=== PATIENT | female | born 1970 | race African-American/Black ===

== ENCOUNTER 2017-03-11 14:07 | Emergency (ER) | payer SELFPAY ==
[2017-03-11] MEDS ORDERED: Morphine 10 MG/ML VIAL ONE (14:37)
== END 2017-03-11 15:03 | disposition home or self-care (01) ==
LOC: ERS 14:07
DX: M54.16 Radiculopathy, lumbar region (principal); I10 Essential (primary) hypertension; F31.9 Bipolar disorder, unspecified; F17.210 Nicotine dependence, cigarettes, uncomplicated; Z79.899 Other long term (current) drug therapy
CPT/HCPCS: 96372; J2270

== ENCOUNTER 2017-07-15 19:15 | Observation (INO) | payer MEDICAID, SELFPAY ==
[2017-07-15 19:55] LABS: #Basophils 0.1 thou/uL (0.0-0.2); #Lymphocytes 4.2 thou/uL (1.20-3.40); #Monocytes 0.9 thou/uL (0.11-0.59); #Neutrophils 5.3 thou/uL (1.40-6.50); %Basophils 1.3 % (0.0-1.0); %Eosinophils 0.2 % (0.0-10.0); %Lymphocytes 39.4 % (21.0-51.0); %Monocytes 8.9 % (0.0-10.0); %Neutrophils 50.2 % (42.0-75.0); Hemoglobin 13.6 g/dL (12.0-16.0); Mean Corpuscular HGB CONC 33.3 g/dL (32.0-36.0); Mean Corpuscular Hemoglobin 28.5 pg (27.0-31.0); Mean Corpuscular Volume 85.8 fl (81.0-99.0); Mean Platelet Volume 6.7 fL (7.4-10.4); Platelet Count 437 thou/uL (130-400); RBC Distribution Width 14.7 % (11.5-14.5); Red Blood Cell (RBC) Count 4.76 mill/uL (4.20-5.40); White Blood Cell (WBC) Count 10.6 thou/uL (4.8-10.8)
--- NOTE | 2017-07-15 20:19 | RAD ---
CHEST ONE VIEW 07/15/17 HISTORY: Hypertension. COMPARISON: 12/05/11 FINDINGS: The cardiac silhouette is magnified by projection. Pulmonary vasculature is unremarkable. Mediastinum is midline with single vertical metallic mohit of the spine. No lobar consolidation or evidence of pne umothorax. IMPRESSION: No active cardiopulmonary abnormalities are demonstrated. POS: [facility]
[2017-07-15 20:20] LABS: ALT (SGPT) 11 U/L (8-55); AST (SGOT) 16 U/L (5-34); Albumin 4.1 g/dL (3.5-5.0); Alkaline Phosphatase 80 U/L (40-150); Anion Gap 11 mmol/L (10-20); BUN (Urea Nitrogen) 7 mg/dL (7.0-18.7); Bilirubin, Total 0.3 mg/dL (0.2-1.2); CK (CPK) 110 U/L (29-168); Calc. Creatinine Clearance 0 mL/min (70-130); Calcium 9.7 mg/dL (7.8-10.44); Carbon Dioxide 26 mmol/L (22-29); Chloride 104 mmol/L (98-107); Estimated GFR-MDRD 79; Glucose 88 mg/dL (70-105); Lipase 26 U/L (8-78); Potassium 3.9 mmol/L (3.5-5.1); Protein, Total 7.1 g/dL (6.0-8.3); Sodium 137 mmol/L (136-145)
[2017-07-15 20:25] LABS: Troponin I Less than 0.010 ng/mL (< 0.028)
[2017-07-15] MEDS ORDERED: hydrALAZINE 20 MG/ML VIAL ONE ×2 (20:34→21:12)
[2017-07-15] MEDS ORDERED: Furosemide 40 MG/4 ML VIAL ONE (21:12)
[2017-07-15] MEDS ORDERED: Ondansetron HCl/PF 4 MG/2 ML Vial IVP PRN (23:46)
[2017-07-15] MEDS ORDERED: Ondansetron ODT 4 MG TAB SL PRN (23:46)
[2017-07-15 23:48] LABS: Troponin I Less than 0.010 ng/mL (< 0.028)
[2017-07-15 23:56] VITALS: BMI 37.1
[2017-07-16] MEDS ORDERED: Zolpidem Tartrate 5 MG TAB PO PRN (01:04)
[2017-07-16] MEDS ORDERED: traMADol HCl 50 MG TAB PO PRN (01:12)
--- NOTE | 2017-07-16 01:21 | PDOC.FPRHP ---
- History of Present Illness Chief Complaint: High blood pressure History of Present Illness: 46 yo F with hx of HTN here with complaint of high blood pressure measured 190s/ 110s at home. Pt states that her blood pressure normally runs in the 150-160 systolic range. She complains of associated symptoms of headache and dizziness especially when she stands. She says that she has not missed any meds recently. She denies symptoms such as chest pain or n/v. Pt also complains lower extremity edema. She states that she often has LE edema , however it has acutely worsened over the past few days. As of yesterday, both legs were swollen with the left being more prominent than the right. Today she says the right is worse than the left. She denies associated leg pain. She admits to SOB that started yesterday without associated cough, fever, chills. ED Course: In the ED she had a max systolic pressure of 204. She was treated with 10mg of hydralazine x2 and her blood pressure was brought down to the 170-190 range. - Allergies/Adverse Reactions Allergies Allergy/AdvReac Type Severity Reaction Status Date / Time Sulfa (Sulfonamide Allergy Verified 07/15/17 23:53 Antibiotics) - Home Medications Medication Instructions Recorded Confirmed Type DULoxetine [Cymbalta] 30 mg PO QPM 07/16/17 07/16/17 History DULoxetine [Cymbalta] 60 mg PO QAM 07/16/17 07/16/17 History Gabapentin [Neurontin] 100 mg PO TID 07/16/17 07/16/17 History Lamotrigine [lamoTRIgine] 125 mg PO BID 07/16/17 07/16/17 History Lisinopril/Hydrochlorothiazide 2 tablet PO DAILY 07/16/17 07/16/17 History [Lisinopril-Hctz 20-12.5 mg Tab] OLANZapine [Olanzapine] 10 mg PO HS 07/16/17 07/16/17 History Zolpidem Tartrate [Ambien] 10 mg PO HS PRN 07/16/17 07/16/17 History traMADol HCl [Tramadol HCl] 50 mg PO Q6HR PRN 07/16/17 07/16/17 History - History PMHx: BPD HTN PSHx: Scoliosis related back surgery FHx: CHF Social: 5 pk year smoking hx - Review of Systems General: denies: fever/chills, weight/appetite/sleep changes Eyes: reports: vision changes (Blurred vision). denies: eye pain ENT: reports: nasal congestion, rhinorrhea Respiratory: reports: cough, congestion. denies: shortness of breath Cardiovascular: reports: edema (B/l LE). denies: chest pain, palpitation Gastrointestinal: denies: nausea, vomiting Genitourinary: denies: incontinence, polyuria Skin: denies: rashes Musculoskeletal: denies: pain, tenderness Neurological: denies: numbness, syncope Psychological: reports: anxiety, depression - Vital signs BP: 186/83 HR: 75 RR: 18 Tmax: 99.4 Pox: 97% on RA Wt: 104 kg - Physical Exam Constitutional: NAD, awake, alert and oriented HEENT: normocephalic and atraumatic, PERRLA, EOMI, MMM Neck: supple, FROM Chest: no-tender to palpation Heart: RRR, normal S1/S2, no murmurs/rubs/gallops, other (LE edema to knee right worse than left.) Lungs: CTAB, good air movement Abdomen: soft, non-tender, bowel sounds present Musculoskeletal: normal structure, normal tone Neurological: no focal deficit, CN II-XII intact Skin: no rash/lesions, good turgor Heme/Lymphatic: no unusual bruising or bleeding Psychiatric: other (Appears anxious) FMR H&P: Results - Labs Result Diagrams: 07/15/17 19:51 07/15/17 19:51 Lab results: WBC 10.6 thou/uL (4.8-10.8) 07/15/17 19:51 Hgb 13.6 g/dL (12.0-16.0) 07/15/17 19:51 Hct 40.8 % (36.0-47.0) 07/15/17 19:51 MCV 85.8 fl (81.0-99.0) 07/15/17 19:51 Plt Count 437 thou/uL (130-400) H 07/15/17 19:51 Neutrophils % 50.2 % (42.0-75.0) 07/15/17 19:51 Sodium 137 mmol/L (136-145) 07/15/17 19:51 Potassium 3.9 mmol/L (3.5-5.1) 07/15/17 19:51 Chloride 104 mmol/L (98-107) 07/15/17 19:51 Carbon Dioxide 26 mmol/L (22-29) 07/15/17 19:51 BUN 7 mg/dL (7.0-18.7) 07/15/17 19:51 Creatinine 0.92 mg/dL (0.6-1.1) 07/15/17 19:51 Glucose 88 mg/dL (70-105) 07/15/17 19:51 Calcium 9.7 mg/dL (7.8-10.44) 07/15/17 19:51 Total Bilirubin 0.3 mg/dL (0.2-1.2) 07/15/17 19:51 AST 16 U/L (5-34) 07/15/17 19:51 ALT 11 U/L (8-55) 07/15/17 19:51 Alkaline Phosphatase 80 U/L (40-150) 07/15/17 19:51 Creatine Kinase 110 U/L (29-168) 07/15/17 19:51 CK-MB (CK-2) 1.0 ng/mL (0-6.6) 07/15/17 19:51 B-Natriuretic Peptide 69.7 pg/mL (0-100) 07/15/17 19:51 Serum Total Protein 7.1 g/dL (6.0-8.3) 07/15/17 19:51 Albumin 4.1 g/dL (3.5-5.0) 07/15/17 19:51 Lipase 26 U/L (8-78) 07/15/17 19:51 - Radiology Interpretation Chest x-ray Status: report reviewed by me (Normal xray) FMR H&P: A/P - Problem List (1) Hypertensive urgency Current Visit: Yes Status: Acute Priority: High Code(s): I16.0 - HYPERTENSIVE URGENCY (2) Lower extremity edema Current Visit: Yes Status: Acute Priority: High Code(s): R60.0 - LOCALIZED EDEMA (3) HTN (hypertension) Current Visit: Yes Status: Chronic Priority: High Code(s): I10 - ESSENTIAL (PRIMARY) HYPERTENSION Qualifiers: Hypertension type: unspecified Qualified Code(s): I10 - Essential (primary ) hypertension (4) Bipolar disorder Current Visit: Yes Status: Acute Priority: Low Code(s): F31.9 - BIPOLAR DISORDER, UNSPECIFIED - Plan Hypertensive urgency - Restart home meds and add coreg - hydralazine prn for pressure over 180/110 - admit to tele obs LE edema - pt has chronic edema, however in the setting of SOB will r/o PE - D-Dimer - LE doppler HTN - home meds and coreg as above Bipolar disorder - restart home meds Chronic back pain - restart tramadol and gabapentin, home meds DVT prophylaxis - Lovenox - SCD Disposition/LOS: Pt is stable. Will rule out DVT and cardiogenic cause of edema. Likely DC tomorrow FMR H&P: Upper Level - Pertinent history Patient is a 46yo AAF with PMHx of HTN, chronic low back pain and bipolar d/o who presents to ED due to elevated BP. Pt states that she knew her BP was high today because she just felt it. Endorses light headedness and floaters in her vision. Took her BP at that time and was 190/112 and thus presented to ED. Also reports BL LE swelling for the past few days. States LLE swelling has resolved but continued to have RLE swelling. Says her legs do swell occasionally and will resolved after a few days. Currently on Lisinopril/HCTZ BID and compliant with medication. States her BP normally runs in 150-160s. Previously on amlodipine but caused LE swelling. Followed by PCP in [place]. - Pertinent findings Gen: NAD HEENT: NEO, PONCHOM CV: S1 S2, RRR Lungs: CTAB Abd: nt/nd/bs+ Ext: RT. LE edema, (-) Homans, no calf tenderness - Plan Date/Time: 07/16/17 0114 IMis, have evaluated this patient and agree with findings/ plan as outlined by purchasing internship resident. Pertinent changes/additions are listed here. 1. Hypertensive urgency: Patient with uncontrolled HTN and currently on Lisinopril/HCTZ BID. Compliant with medication and reports BPs normally run in 150-160s. Has been on amlodipine before but caused significant LE edema. Will add coreg. 2. RLE swelling: patient with few day hx of BL LE swelling with resolution of LLE but persistent RLE. Given lasix in ED. BNP negative. Wells score of 2 for DVT. PERC of 1. Obtain BL LE doppler and d-dimer. Family hx of CHF and family concerned so obtain ECHO as well. 3. Bipolar DO: cont home olanzapine and duloxetine. 4. Chronic back pain: cont home tramadol and gabapentin. 5. Diet: HH 6. PPx: lovenox 7. Code Status: Full Attending Addendum - Attending Addendum Date/Time: 07/16/17 0236 I personally evaluated the patient and discussed the management with Dr. Perez and Yolanda. I agree with and repeated the History, Examination, Assessment and Plan documented above with any addition or exceptions noted below. See my event note.
[2017-07-16] MEDS: Zolpidem Tartrate 5 MG TAB PO PRN ×2 (01:30→20:56)
[2017-07-16] MEDS ORDERED: OLANZapine 5 MG TAB PO SCH (01:30)
--- NOTE | 2017-07-16 01:31 | PDOC.EVN ---
Event Note - Event Note Event Note: Attending note Pt seen on 07/15. 46 y/o female with PMH HTN with leg swelling, shortness of breath for several days. No CP/headache. No orthopnea or PND. Does snore at night quite loudly. NAD, resting comfortably RRR s M, BLE pitting edema, R significantly greater than left CTAB s w/r/r BS+, NTTP A/P: Hypertensive urgency -repeat dose home med and add coreg (adverse side effects from CCB in the past) -repeat dose lasix -TTE Leg swelling -r/o DVT with doppler/ddimer Check A1c, lipid panel DVT ppx with lovenox GI ppx with diet Discussed in detail with residents.
[2017-07-16] MEDS ORDERED: hydrALAZINE 20 MG/ML VIAL SLOW IVP SCH ×2 (01:45→04:15)
[2017-07-16 02:25] LABS: Troponin I Less than 0.010 ng/mL (< 0.028)
[2017-07-16] MEDS ORDERED: Ondansetron HCl/PF 4 MG/2 ML Vial IVP SCH (05:00)
[2017-07-16 06:44] LABS: Hemoglobin A1c 5.4 % (4.0-6.0)
[2017-07-16 06:47] LABS: Anion Gap 14 mmol/L (10-20); BUN (Urea Nitrogen) 7 mg/dL (7.0-18.7); Calc. Creatinine Clearance 121 mL/min (70-130); Calcium 9.9 mg/dL (7.8-10.44); Carbon Dioxide 25 mmol/L (22-29); Cardiac Risk 3.6 (Less than 4.5); Chloride 103 mmol/L (98-107); Cholesterol 157 mg/dl (< 200 Desired); Estimated GFR-MDRD 80; Glucose 94 mg/dL (70-105); HDL Cholesterol 44 mg/dL (>60 Neg Risk); LDL Cholesterol, Calculated 102 mg/dL; Potassium 3.4 mmol/L (3.5-5.1); Sodium 139 mmol/L (136-145); Triglycerides 54 mg/dL (Less than 150)
[2017-07-16] MEDS: lamoTRIgine 100 MG TAB PO SCH ×2 (08:45→20:55)
[2017-07-16] MEDS: Carvedilol 3.125 MG TAB PO SCH ×2 (08:45→16:34)
[2017-07-16] MEDS: Gabapentin 100 MG CAP PO SCH ×4 (08:46→20:55)
[2017-07-16] MEDS: DULoxetine 30 MG CAP PO SCH ×2 (08:46→20:55)
[2017-07-16] MEDS: Lisinopril/Hydrochlorothiazide 20 mg/12.5 mg Tablet PO SCH (08:46)
[2017-07-16] MEDS: Enoxaparin Sodium 40 MG/0.4 ML SYRINGE SC SCH (08:46)
--- NOTE | 2017-07-16 08:48 | PDOC.FM ---
- Subjective Subjective: Patient reports that she has had continued nausea and frontal headache. She does feel like the swelling in her R ankle has improved. She reports dizziness that is worse when she gets up or moves suddenly. She denies chest pain, but is having some SOB that is worse when she lies down. She reports that she sometimes has PND and reports HARO. - Objective MAR Reviewed: Yes Vital Signs & Weight: Vital Signs (12 hours) Temp Pulse Resp BP BP Pulse Ox 07/16/17 07:59 98.6 F 104 H 18 138/77 95 07/16/17 04:53 88 07/16/17 03:59 98.3 F 88 18 179/79 H 93 L 07/16/17 02:50 104 H 182/89 H 07/16/17 02:20 97.9 F 75 20 07/16/17 02:08 75 07/16/17 01:30 197/92 H 07/16/17 00:05 98.5 F 75 20 191/89 H 95 Weight Weight 101.242 kg I&O: 07/15/17 07/16/17 07/17/17 06:59 06:59 06:59 Intake Total 360 Output Total 1350 Balance -990 Result Diagrams: 07/15/17 19:51 07/16/17 01:53 <Marbella Judd - Last Filed: 07/16/17 08:59> - Objective Vital Signs & Weight: Vital Signs (12 hours) Temp Pulse Resp BP BP Pulse Ox 07/16/17 12:05 97.8 F 89 14 173/76 H 94 L 07/16/17 08:00 98.6 F 104 H 18 138/77 95 07/16/17 07:59 98.6 F 104 H 18 138/77 95 07/16/17 04:53 88 07/16/17 03:59 98.3 F 88 18 179/79 H 93 L 07/16/17 02:50 104 H 182/89 H Weight Weight 101.242 kg I&O: 07/15/17 07/16/17 07/17/17 06:59 06:59 06:59 Intake Total 360 10 Output Total 1350 Balance -990 10 Result Diagrams: 07/15/17 19:51 07/16/17 01:53 <Justyna Valiente - Last Filed: 07/16/17 14:24> Phys Exam - Physical Examination Constitutional: NAD HEENT: PERRLA, moist MMs, sclera anicteric EOMI Respiratory: no wheezing, no rales, no rhonchi, clear to auscultation bilateral Cardiovascular: RRR, no rub 3/6 systolic murmur Gastrointestinal: soft, non-tender, no distention, positive bowel sounds Musculoskeletal: edema present (RLE non-pitting edema) RLE tenderness over the moore, but no calf tenderness, negative homans Neurological: non-focal, moves all 4 limbs CNII-XII intact, no dysdiadochokinesia, normal [id number] Psychiatric: normal affect, A&O x 3 Skin: no rash, cap refill <2 seconds <Marbella Judd - Last Filed: 07/16/17 08:59> Dx/Plan (1) Hypertensive urgency Code(s): I16.0 - HYPERTENSIVE URGENCY Status: Acute (2) Lower extremity edema Code(s): R60.0 - LOCALIZED EDEMA Status: Acute (3) HTN (hypertension) Code(s): I10 - ESSENTIAL (PRIMARY) HYPERTENSION Status: Chronic QualifierTitle: Hypertension type: unspecified Qualified Code(s): I10 - Essential (primary) hypertension (4) Bipolar disorder Code(s): F31.9 - BIPOLAR DISORDER, UNSPECIFIED Status: Acute QualifierTitle: Active/Remission status: remission status unspecified Qualified Code(s): F31.9 - Bipolar disorder, unspecified - Plan Plan: 1. Hypertensive urgency Patient reports that her BP is usually systolic of 150s-160s at home. Her SBP was > 200 in the ED and she reports it was in the 190s at home. She had associated blurry vision, dizziness, headache, SOB, and nausea. Patient did not tolerate CCB in the past due to LE swelling. - Continue home meds, Coreg added - hydralazine prn for pressure over 180/110 - Will get CT head to r/o cerebellar infarct - admit to tele obs 2. RLE edema The patient has negative homans and no calf tenderness, but has some tenderness on her moore. D dimer was negative. Patient has chronic edema, however in the setting of SOB will r/o PE. - LE doppler 3. HTN - home meds and coreg as above 4. Bipolar disorder - restart home meds 5. Chronic back pain - restart tramadol and gabapentin, home meds <Marbella Judd - Last Filed: 07/16/17 08:59> Attending Addendum - Attending Addendum Date/Time: 07/16/17 8682 I personally evaluated the patient and discussed the management with Dr. Judd on 07/16/17. I agree with the History, Examination, Assessment and Plan documented above with any addition or exceptions noted below. Patient continues to have nausea and headache despite improved BPs. Will get head CT today and possibly MRI to continue stroke workup. Add Phenergan and IV Reglan for nausea control. Needs outpatient workup for LUPIS. Coreg added for BP control, may consider changing to Metopolol vs Nifedipine for cost reasons. <Justyna Valiente - Last Filed: 07/16/17 14:24>
[2017-07-16] MEDS ORDERED: Potassium Chloride 20 MEQ TAB PO SCH (09:00)
--- NOTE | 2017-07-16 09:01 | ULT ---
BILATERAL LOWER EXTREMITY VENOUS DUPLEX EXAM: Date: 07-16-17 History: Pain, edema. FINDINGS: Real-time color doppler evaluation of the right and left lower extremities were performed from groin to calf. This includes evaluation of the common femoral, superficial and profunda femoral, saphenous, popliteal and trifurcation veins. This shows a patent deep venous system bilaterally. There is cliff l compressibility and augmentation. There is no evidence of DVT. IMPRESSION: No evidence of DVT of either lower extremity. POS: [facility]
[2017-07-16] MEDS ORDERED: Metoclopramide HCl 10 MG TAB PO SCH (09:45)
[2017-07-16] MEDS ORDERED: Metoclopramide HCl 10 MG/2 ML VIAL IVP PRN (11:12)
[2017-07-16] MEDS ORDERED: Promethazine HCl 25 MG SUPP PR SCH (11:15)
--- NOTE | 2017-07-16 11:20 | CT ---
CT HEAD WITHOUT CONTRAST: Date: 07-16-17 Comparison: None. History: Elevated blood pressure, dizziness, headache. Technique: Serial axial CT imaging at 5 mm intervals from vertex through the skull base without contr ast. FINDINGS: The imaged paranasal sinuses and mastoid air cells are well aerated. There is no displaced calvarial fracture. There is no intracranial hemorrhage, midline shift, mass effect or ventricular enlargement. IMPRESSION: No acute findings. POS: [facility]
[2017-07-16] MEDS ORDERED: Promethazine HCl 12.5 MG SUPP PR PRN (15:00)
--- NOTE | 2017-07-16 15:16 | MRI ---
BRAIN MRI NONCONTRAST: Clinical history: Dizziness. Hypertension. FINDINGS: There is normal sized ventricular system. No evidence of midline shift or acute territorial infarctio n. No intracranial hemorrhagic susceptibility. Motion artifact is present. There are no significant p arenchymal signal abnormalities demonstrated. Motion artifact distorts evaluation of the skull base f low voids. IMPRESSION: No acute intracranial abnormalities. POS: [facility]
[2017-07-16] MEDS: Acetaminophen 325 MG TAB PO PRN ×2 (15:22→20:56)
[2017-07-16] MEDS: Atorvastatin Calcium 40 MG TAB PO SCH (20:55)
[2017-07-16] MEDS: OLANZapine 5 MG TAB PO SCH (20:56)
[2017-07-17] MEDS ORDERED: Ondansetron ODT 8 MG TAB SL PRN (05:56)
[2017-07-17] MEDS ORDERED: Ondansetron HCl/PF 4 MG/2 ML Vial IVP PRN (05:56)
[2017-07-17 07:03] LABS: Anion Gap 13 mmol/L (10-20); BUN (Urea Nitrogen) 9 mg/dL (7.0-18.7); Calc. Creatinine Clearance 119 mL/min (70-130); Calcium 9.5 mg/dL (7.8-10.44); Carbon Dioxide 27 mmol/L (22-29); Chloride 103 mmol/L (98-107); Estimated GFR-MDRD 81; Glucose 97 mg/dL (70-105); Potassium 3.5 mmol/L (3.5-5.1); Sodium 139 mmol/L (136-145)
--- NOTE | 2017-07-17 08:09 | PDOC.FM ---
- Subjective Subjective: Patient feeling much better this AM. Her nausea/vomiting has resolved. She was able to sleep and eat. She reports that her headache is starting to come back this AM. She denies any further dizziness or any chest pain or SOB. - Objective MAR Reviewed: Yes Vital Signs & Weight: Vital Signs (12 hours) Temp Pulse Resp BP Pulse Ox 07/17/17 04:00 98.4 F 80 14 130/88 95 07/17/17 00:00 99.2 F 83 17 140/88 94 L 07/16/17 20:15 99.5 F 90 18 Weight Weight 98.792 kg I&O: 07/16/17 07/17/17 07/18/17 06:59 06:59 06:59 Intake Total 360 1262 Output Total 1350 1800 Balance -990 -538 Result Diagrams: 07/15/17 19:51 07/17/17 06:30 <Marbella Judd - Last Filed: 07/17/17 08:08> - Objective Vital Signs & Weight: Vital Signs (12 hours) Temp Pulse Resp BP Pulse Ox 07/17/17 10:09 80 07/17/17 08:05 98.2 F 89 18 184/83 H 93 L 07/17/17 04:00 98.4 F 80 14 130/88 95 Weight Weight 98.792 kg I&O: 07/16/17 07/17/17 07/18/17 06:59 06:59 06:59 Intake Total 360 1262 Output Total 1350 1800 Balance -990 -538 Result Diagrams: 07/15/17 19:51 07/17/17 06:30 <Justyna Valiente - Last Filed: 07/17/17 12:26> Phys Exam - Physical Examination Constitutional: NAD HEENT: moist MMs Respiratory: no wheezing, no rales, no rhonchi, clear to auscultation bilateral Cardiovascular: RRR, no significant murmur, no rub Gastrointestinal: soft, non-tender, no distention, positive bowel sounds Musculoskeletal: no edema, pulses present Neurological: non-focal, moves all 4 limbs Psychiatric: normal affect, A&O x 3 Skin: no rash, cap refill <2 seconds <Marbella Judd - Last Filed: 07/17/17 08:08> Dx/Plan (1) Hypertensive urgency Code(s): I16.0 - HYPERTENSIVE URGENCY Status: Acute (2) Lower extremity edema Code(s): R60.0 - LOCALIZED EDEMA Status: Acute (3) HTN (hypertension) Code(s): I10 - ESSENTIAL (PRIMARY) HYPERTENSION Status: Chronic QualifierTitle: Hypertension type: unspecified Qualified Code(s): I10 - Essential (primary) hypertension (4) Bipolar disorder Code(s): F31.9 - BIPOLAR DISORDER, UNSPECIFIED Status: Acute QualifierTitle: Active/Remission status: remission status unspecified Qualified Code(s): F31.9 - Bipolar disorder, unspecified - Plan Plan: 1. Hypertensive urgency Patient reports that her BP is usually systolic of 150s-160s at home. Her SBP was > 200 in the ED and she reports it was in the 190s at home. She had associated blurry vision, dizziness, headache, SOB, and nausea. Patient did not tolerate amlodipine in the past due to LE swelling. Ruled out infarct with CT/ MRI head. Patient's ASCVD 10 yr risk is 8.5% and lifetime risk is 30% - Continue home meds, Nifedipine added - hydralazine prn for pressure over 180/110 - Will get an echo - Started atorvastatin and aspirin - admit to tele obs 2. RLE edema The patient has negative homans and no calf tenderness, but has some tenderness on her moore. D dimer was negative. Patient has chronic edema, however in the setting of SOB will r/o PE. LE doppler was negative. - Will get an echo to r/o CHF 3. HTN - home meds and Nifedipine as above 4. Bipolar disorder - restart home meds 5. Chronic back pain - restart tramadol and gabapentin, home meds <Marbella Judd - Last Filed: 07/17/17 08:08> Attending Addendum - Attending Addendum Date/Time: 07/17/17 1224 I personally evaluated the patient and discussed the management with Dr. Judd on 07/17/17. I agree with the History, Examination, Assessment and Plan documented above with any addition or exceptions noted below. Patient's BPs much improved this morning, but just prior to my exam had a systolic BP in 180s with return of headache. Her nausea is resolved, likely caused by hypertensive encephalopathy. Nifedipine on board, as well as lisinopril/HCTZ. Strong family history of resistant hypertension. If patient' s BPs improve may go home as soon as this afternoon, if not likely tomorrow morning. <Justyna Valiente - Last Filed: 07/17/17 12:26>
[2017-07-17] MEDS ORDERED: NIFEdipine XL 30 MG TAB PO SCH (09:00)
[2017-07-17] MEDS: DULoxetine 30 MG CAP PO SCH ×2 (10:09→21:07)
[2017-07-17] MEDS: Lisinopril/Hydrochlorothiazide 20 mg/12.5 mg Tablet PO SCH (10:09)
[2017-07-17] MEDS: Gabapentin 100 MG CAP PO SCH ×3 (10:10→21:07)
[2017-07-17] MEDS: lamoTRIgine 100 MG TAB PO SCH ×2 (10:10→21:08)
[2017-07-17] MEDS: Aspirin 81 mg Enteric Coated Tablet PO SCH (10:11)
[2017-07-17] MEDS: Enoxaparin Sodium 40 MG/0.4 ML SYRINGE SC SCH (10:11)
[2017-07-17] MEDS ORDERED: Labetalol HCl 100 MG/20 ML VIAL SLOW IVP PRN (13:11)
[2017-07-17] MEDS: hydrALAZINE 25 MG TAB PO SCH ×2 (13:55→21:07)
[2017-07-17] MEDS: Zolpidem Tartrate 5 MG TAB PO PRN (21:07)
[2017-07-17] MEDS: Atorvastatin Calcium 40 MG TAB PO SCH (21:07)
[2017-07-17] MEDS: OLANZapine 5 MG TAB PO SCH (21:07)
[2017-07-18 07:13] VITALS: TEMP 98.6
[2017-07-18] MEDS: Enoxaparin Sodium 40 MG/0.4 ML SYRINGE SC SCH (08:23)
[2017-07-18] MEDS: lamoTRIgine 100 MG TAB PO SCH (08:23)
[2017-07-18] MEDS: hydrALAZINE 25 MG TAB PO SCH (08:24)
[2017-07-18] MEDS: Gabapentin 100 MG CAP PO SCH (08:24)
[2017-07-18] MEDS: Aspirin 81 mg Enteric Coated Tablet PO SCH (08:24)
[2017-07-18] MEDS: DULoxetine 30 MG CAP PO SCH (08:24)
--- NOTE | 2017-07-18 08:28 | PDOC.FM ---
- Subjective Subjective: Patient reports that she feels much better. She denies any further headaches, nausea, dizziness, vision changes. She is tolerating PO well. - Objective MAR Reviewed: Yes Vital Signs & Weight: Vital Signs (12 hours) Temp Pulse Resp BP BP BP Pulse Ox 07/18/17 07:24 98.6 F 77 16 183/85 H 96 07/18/17 07:12 98.6 F 77 16 183/85 H 96 07/18/17 04:00 98.3 F 89 17 177/92 H 95 07/17/17 21:07 79 Weight Weight 98.293 kg I&O: 07/17/17 07/18/17 07/19/17 06:59 06:59 06:59 Intake Total 1262 1340 Output Total 1800 1350 Balance -538 -10 Result Diagrams: 07/15/17 19:51 07/17/17 06:30 <Marbella Judd - Last Filed: 07/18/17 08:27> - Objective Vital Signs & Weight: Weight Weight 98.293 kg I&O: 07/18/17 07/19/17 07/20/17 06:59 06:59 06:59 Intake Total 1340 Output Total 1350 Balance -10 Result Diagrams: 07/15/17 19:51 07/17/17 06:30 <Justyna Valiente - Last Filed: 07/19/17 09:07> Phys Exam - Physical Examination Constitutional: NAD HEENT: moist MMs Respiratory: no wheezing, no rales, no rhonchi, clear to auscultation bilateral Cardiovascular: RRR, no significant murmur, no rub Gastrointestinal: soft, non-tender, no distention, positive bowel sounds Musculoskeletal: pulses present, edema present (non-pitting edema in BLE) Neurological: non-focal, moves all 4 limbs Psychiatric: normal affect, A&O x 3 <Marbella Judd - Last Filed: 07/18/17 08:27> Dx/Plan (1) Hypertensive urgency Code(s): I16.0 - HYPERTENSIVE URGENCY Status: Acute (2) Lower extremity edema Code(s): R60.0 - LOCALIZED EDEMA Status: Acute (3) HTN (hypertension) Code(s): I10 - ESSENTIAL (PRIMARY) HYPERTENSION Status: Chronic QualifierTitle: Hypertension type: unspecified Qualified Code(s): I10 - Essential (primary) hypertension (4) Bipolar disorder Code(s): F31.9 - BIPOLAR DISORDER, UNSPECIFIED Status: Acute QualifierTitle: Active/Remission status: remission status unspecified Qualified Code(s): F31.9 - Bipolar disorder, unspecified (5) Heart failure with preserved ejection fraction Code(s): I50.30 - UNSPECIFIED DIASTOLIC (CONGESTIVE) HEART FAILURE Status: Acute - Plan Plan: 1. Hypertensive urgency Patient reports that her BP is usually systolic of 150s-160s at home. Her SBP was > 200 in the ED and she reports it was in the 190s at home. She had associated blurry vision, dizziness, headache, SOB, and nausea. Patient did not tolerate amlodipine in the past due to LE swelling. Ruled out infarct with CT/ MRI head. Patient's ASCVD 10 yr risk is 8.5% and lifetime risk is 30% - Continue home meds, Nifedipine added - hydralazine prn for pressure over 180/110 - Started atorvastatin and aspirin - admit to tele obs 2. RLE edema The patient has negative homans and no calf tenderness, but has some tenderness on her moore. D dimer was negative. Patient has chronic edema, however in the setting of SOB will r/o PE. LE doppler was negative. Echo showed Grade I/III diastolic dysfunction and EF of 60-65%. 3. HTN - home meds and Nifedipine as above 4. Bipolar disorder - restart home meds 5. Chronic back pain - restart tramadol and gabapentin, home meds 6. HFpEF Patient had echo that showed EF 60-65%, diastolic dysfunction grade I/III. Not in an acute exacerbation. - Counseled patient on home fluid restriction - Continue good BP control - Counseled on lifestyle changes <Marbella Judd - Last Filed: 07/18/17 08:27> Attending Addendum - Attending Addendum Date/Time: 07/19/17 0906 I personally evaluated the patient and discussed the management with Dr. Judd on 07/18/17. I agree with the History, Examination, Assessment and Plan documented above with any addition or exceptions noted below. Patient's BPs trending down, highest this morning 150s systolic. Symptoms of hypertensive encephalopathy resolved. Will discharge home with close outpatient follow up. <Justyna Valiente - Last Filed: 07/19/17 09:07>
[2017-07-18] MEDS ORDERED: NIFEdipine XL 60 MG TAB PO SCH (09:00)
[2017-07-18] MEDS ORDERED: Lisinopril/Hydrochlorothiazide 20 mg/12.5 mg Tablet PO SCH (09:00)
[2017-07-18 10:00] VITALS: BP 158/86
--- NOTE | 2017-07-19 01:19 | DIS-2 ---
DATE OF ADMISSION: 07/15/2017 DATE OF DISCHARGE: 07/18/2017 ADMITTING RESIDENT: Malachi Perez DO DISCHARGE RESIDENT: Marbella Judd MD ADMITTING ATTENDING: Aquiles Mello MD DISCHARGE ATTENDING: Justyna Valiente DO CONSULTATIONS: None. PROCEDURES: None. IMAGIN. Chest x-ray showed no active cardiopulmonary abnormalities. 2. Echocardiogram showed EF of 60% to 65%, grade 1 or 3 diastolic dysfunction, mild tricuspid regurg itation. 3. Bilateral lower extremity venous Doppler showed no evidence of DVT in either lower extremity. 4. Brain CT showed no acute findings. 5. Brain MRI showed no acute intracranial abnormalities. PRIMARY DIAGNOSES: 1. Hypertensive encephalopathy. 2. Hypertensive urgency. 3. Heart failure with preserved ejection fraction. 4. Lower extremity edema. SECONDARY DIAGNOSES: 1. Hypertension. 2. Bipolar disorder. 3. Chronic back pain. DISCHARGE MEDICATIONS: 1. Aspirin 81 mg p.o. daily. 2. Atorvastatin 40 mg p.o. at bedtime. 3. Duloxetine 60 mg p.o. q.a.m., 30 mg p.o. q.p.m. 4. Gabapentin 100 mg p.o. t.i.d. 5. Hydralazine 50 mg p.o. t.i.d. 6. Lamotrigine 125 mg p.o. b.i.d. 7. Lisinopril/hydrochlorothiazide 20/12.5 mg 1 tablet p.o. b.i.d. 8. Nifedipine extended release 60 mg p.o. daily. 9. Olanzapine 10 mg p.o. at bedtime. 10. Tramadol 50 mg p.o. q.6 hours p.r.n. for pain. 11. Ambien 10 mg p.o. at bedtime p.r.n. for insomnia. DISCONTINUED MEDICATIONS: None. HISTORY OF PRESENT ILLNESS AND HOSPITAL COURSE: This is a 46-year-old female with past medical histo ry of hypertension, bipolar disorder who presented to the emergency room with headache, nausea, vomit ing, dizziness, blurry vision. The patient had also lower extremity swelling that was worse on the r ight than the left. The patient was found to have blood pressure in systolic 200. She was found to have a D-dimer of 0.32. BNP of 69.7 and negative troponins x3. The patient was worked up for an acu te cerebellar infarct with a brain CT and MRI and these were both negative. The patient was also wor ked up for a DVT with her right lower extremity swelling and this was found to be negative as well. The patient was given hydralazine in the ER to bring down her blood pressure which helped. She was a lso given her nighttime dose of medication. The patient reported significant family history of resis tant hypertension. A fasting lipid panel was checked and ASCVD risk was calculated on the patient an d she was found to have a 10-year risk of 8.5% and a lifetime risk of 30%. This was discussed with t maye patient. The patient was started on atorvastatin and aspirin. Nifedipine was added to the enricomacario mcleod's regimen for her blood pressure and this was titrated up to 60 mg of the extended release version. The patient had a history of not tolerating amlodipine in the past due to lower extremity swelling. The patient continued to have fluctuating blood pressures, this has dropped down to the 130s and ba ck up into the 190s systolic. The patient would not feel well and her blood pressure was high, she w ould get a headache and nausea and vomiting. The patient had hydralazine as needed, but then on 05/2017, hydralazine 50 mg t.i.d. was added onto the patient's blood pressure regimen. All of these c hanges and combination improved the patient's blood pressure to where she was back at her baseline. The patient had an echo done that showed a normal ejection fraction, but grade 1 or 3 diastolic dysfu nction. This was discussed with the patient and lifestyle changes were discussed as well as good blo od pressure control. The patient does have a PCP in [place], and it was encouraged that she continue to follow up with him, for him to be able to further titrate her blood pressure medicines. The enrico ent has ability to check her blood pressure at home and she was counseled to do this, particularly if she does not feel well and she was counseled on reasons to return to the emergency room. At the elodia e of the last day of hospitalization, the patient no longer had any headache, nausea, vomiting, dizzi ness, blurry vision, and her lower extremity swelling had improved. DISPOSITION: Stable. DISCHARGE INSTRUCTIONS: 1. Location: Home. 2. Diet: Heart healthy. Fluid restriction to 1800 mL, encouraged a DASH diet. 3. Activity: As tolerated. 4. Followup: Follow up with PCP within 7-14 days.
== END 2017-07-18 12:24 | disposition home or self-care (01) ==
LOC: ERS 19:15 → 2NO 23:43 → INTOOBSV 23:43
PROVIDERS: ADMIT Emergency Medicine; ATTEND Emergency Medicine
DX: I67.4 Hypertensive encephalopathy (principal); I16.0 Hypertensive urgency; I11.0 Hypertensive heart disease with heart failure; I50.30 Unspecified diastolic (congestive) heart failure; R60.0 Localized edema; F31.9 Bipolar disorder, unspecified; G89.29 Other chronic pain; M54.9 Dorsalgia, unspecified; Z79.899 Other long term (current) drug therapy; Z88.2 Allergy status to sulfonamides
CPT/HCPCS: 36415; 70450; 70551; 71045; 80048; 80053; 80061; 82553; 83036; 83690; 83880; 84484; 85025; 85379; 93005; 93306; 93970; 94760; 96372; 96374; 96375; 96376; A4216; G0378; J0360; J1650; J1940; J2405; J2765; Q0162

== ENCOUNTER 2017-08-25 14:07 | Outpatient (CLI) | payer OTHER | END 2017-08-25 14:08 | disposition home or self-care (01) | LOC: BICRAD 14:07 | PROVIDERS: ATTEND Internal Medicine | DX: Z02.71 Encounter for disability determination (principal); M47.896 Other spondylosis, lumbar region; M41.9 Scoliosis, unspecified | CPT/HCPCS: 72100 ==

== ENCOUNTER 2017-09-14 10:56 | Inpatient (IN) | payer OTHER, SELFPAY ==
[2017-09-14 11:34] LABS: #Lymphocytes 2.8 thou/uL (1.20-3.40); #Monocytes 1.1 thou/uL (0.11-0.59); #Neutrophils 7.3 thou/uL (1.40-6.50); %Eosinophils 0.4 % (0.0-10.0); %Lymphocytes 25.1 % (21.0-51.0); %Monocytes 9.4 % (0.0-10.0); Hemoglobin 13.7 g/dL (12.0-16.0); Mean Corpuscular HGB CONC 32.9 g/dL (32.0-36.0); Mean Corpuscular Hemoglobin 27.9 pg (27.0-31.0); Mean Corpuscular Volume 84.6 fl (81.0-99.0); Mean Platelet Volume 6.8 fL (7.4-10.4); Platelet Count 442 thou/uL (130-400); RBC Distribution Width 14.2 % (11.5-14.5); Red Blood Cell (RBC) Count 4.93 mill/uL (4.20-5.40); White Blood Cell (WBC) Count 11.1 thou/uL (4.8-10.8)
[2017-09-14] MEDS ORDERED: Furosemide 20 MG/2 ML VIAL ONE (11:54)
[2017-09-14] MEDS ORDERED: Nitroglycerin 2% Ointment 1 INCH/1 GM Packet ONE (11:55)
[2017-09-14] MEDS ORDERED: methylPREDNISolone Sod Succ/PF 125 MG/2 ML VIAL ONE (11:55)
[2017-09-14 12:00] LABS: ALT (SGPT) 17 U/L (8-55); AST (SGOT) 15 U/L (5-34); Albumin 4.6 g/dL (3.5-5.0); Alkaline Phosphatase 87 U/L (40-150); Anion Gap 15 mmol/L (10-20); BUN (Urea Nitrogen) 7 mg/dL (7.0-18.7); Bilirubin, Total 0.6 mg/dL (0.2-1.2); CK (CPK) 130 U/L (29-168); Calc. Creatinine Clearance 0 mL/min (70-130); Calcium 9.9 mg/dL (7.8-10.44); Carbon Dioxide 26 mmol/L (22-29); Chloride 103 mmol/L (98-107); Estimated GFR-MDRD Greater than 90; Globulin 3.3 g/dL (2.4-3.5); Glucose 112 mg/dL (70-105); Potassium 3.6 mmol/L (3.5-5.1); Protein, Total 7.9 g/dL (6.0-8.3); Sodium 140 mmol/L (136-145)
[2017-09-14 12:01] LABS: CKMB 1.8 ng/mL (0-6.6); Troponin I Less than 0.010 ng/mL (< 0.028)
--- NOTE | 2017-09-14 13:11 | RAD ---
RADIOGRAPH CHEST 1 VIEW: HISTORY: A 46-year-old female with dyspnea. FINDINGS: The thoracic aorta is tortuous and ectatic. There is no evidence of air space density, pneumothorax, or pulmonary edema. The lateral costophrenic angles are sharp. The patient's chin obscures portion s of bilateral lung apices, especially the right. No cardiomegaly. IMPRESSION: 1) No acute pulmonary findings. 2) Ectasia of ascending thoracic aorta. raymond De La Cruz POS: NICKI
[2017-09-14] MEDS ORDERED: Albuterol Sulfate 2.5 mg/3 ml Neb ONE (13:42)
--- NOTE | 2017-09-14 14:51 | PDOC.EVN ---
Event Note - Event Note Event Note: [id number] H&P Dictated 1. Acute copd exacerbation 2. Acute bronchitis 3. H/O HTN plan: see orders
--- NOTE | 2017-09-14 15:04 | CT ---
CT PULMONARY ANGIOGRAM WITH IV CONTRAST WITH 3D MIP RECONSTRUCTIONS: Date: 09-14-17 Provided Clinical History: Dyspnea. FINDINGS: There is no evidence for central or segmental pulmonary embolus. The heart, pericardium, and great ve ssels demonstrate an unremarkable CT appearance. The lungs are clear of significant opacity. There is a focal filling defect within a medial right lower lobe subsegmental bronchus. There is associated b ronchial wall thickening. There is no adjacent significant parenchymal opacity. The air way appears o therwise patent and of normal caliber. Conspicuous by number but not pathologically enlarged right hi lar lymph nodes are seen. No brandon thoracic lymph node enlargement is evident. Substernal goiters not ed. The visualized portions of the upper abdomen demonstrate no acute process. Spinal instrumentation is noted. IMPRESSION: 1. No evidence for central or segmental pulmonary embolus. 2. Focal filling defect with a medial right lower lobe subsegmental bronchus, possibly on the basis o f infectious or inflammatory material. Other etiologies are not excluded. POS: NICKI
[2017-09-14] MEDS ORDERED: Acetaminophen 325 MG TAB PO PRN (15:08)
[2017-09-14] MEDS ORDERED: Ondansetron ODT 4 MG TAB SL PRN (15:08)
[2017-09-14] MEDS ORDERED: Ondansetron HCl/PF 4 MG/2 ML Vial IVP PRN (15:08)
[2017-09-14] MEDS ORDERED: ISOVUE-370 76%-LOCM 1 ML ONE (15:30)
[2017-09-14] MEDS: HYDROcodone/Acetaminophen 5/325 mg Tablet PO PRN (20:41)
[2017-09-14] MEDS: Gabapentin 100 MG CAP PO SCH (20:41)
[2017-09-14] MEDS: DULoxetine 30 MG CAP PO SCH (20:41)
[2017-09-14] MEDS: Lisinopril/Hydrochlorothiazide 20 mg/12.5 mg Tablet PO SCH (20:41)
[2017-09-14] MEDS: Famotidine 20 MG TAB PO SCH (20:41)
[2017-09-14] MEDS: lamoTRIgine 25 MG TAB PO SCH (20:41)
[2017-09-14] MEDS: OLANZapine 5 MG TAB PO SCH (20:41)
[2017-09-14] MEDS: lamoTRIgine 100 MG TAB PO SCH (20:41)
[2017-09-14] MEDS: Atorvastatin Calcium 40 MG TAB PO SCH (20:41)
[2017-09-14] MEDS: hydrALAZINE 25 MG TAB PO SCH (20:42)
[2017-09-15] MEDS: Zolpidem Tartrate 5 MG TAB PO PRN ×2 (00:06→21:04)
[2017-09-15] MEDS: lamoTRIgine 100 MG TAB PO SCH ×2 (09:12→21:04)
[2017-09-15] MEDS: Lisinopril/Hydrochlorothiazide 20 mg/12.5 mg Tablet PO SCH ×2 (09:12→21:04)
[2017-09-15] MEDS: Famotidine 20 MG TAB PO SCH ×2 (09:12→21:04)
[2017-09-15] MEDS: Aspirin 81 mg Enteric Coated Tablet PO SCH (09:13)
[2017-09-15] MEDS: hydrALAZINE 25 MG TAB PO SCH ×3 (09:13→21:05)
[2017-09-15] MEDS: DULoxetine 60 MG CAP PO SCH (09:13)
[2017-09-15] MEDS: Gabapentin 100 MG CAP PO SCH ×3 (09:14→21:04)
--- NOTE | 2017-09-15 10:12 | PDOC.PN ---
- Subjective Encounter Start Date: 09/15/17 Encounter Start Time: 10:11 Patient seen and examined, no new issues or complaints, states she feels a bit better since yesterday. - Objective Vital Signs & Weight: Vital Signs (12 hours) Temp Pulse Resp BP Pulse Ox 09/15/17 09:13 95 09/15/17 09:12 95 09/15/17 08:00 98.6 F 95 22 H 133/76 90 L 09/15/17 04:00 97.9 F 88 20 131/75 94 L 09/15/17 00:00 98.7 F 100 20 139/81 94 L Weight Weight 214 lb 9.6 oz I&O: 09/14/17 09/15/17 09/16/17 06:59 06:59 06:59 Output Total 700 Balance -700 Result Diagrams: 09/14/17 11:22 09/14/17 11:22 Phys Exam - Physical Examination Constitutional: NAD obese HEENT: PERRLA, moist MMs, sclera anicteric coarse breath sounds coughing when asked to take a deep breath Cardiovascular: RRR, no significant murmur, no rub Gastrointestinal: soft, non-tender, no distention Musculoskeletal: pulses present, edema present (trace) Neurological: non-focal, normal sensation Dx/Plan (1) COPD (chronic obstructive pulmonary disease) with acute bronchitis Code(s): J44.0 - CHRONIC OBSTRUCTIVE PULMON DISEASE W ACUTE LOWER RESP INFCT; J20.9 - ACUTE BRONCHITIS, UNSPECIFIED Status: Acute (2) Bipolar disorder Code(s): F31.9 - BIPOLAR DISORDER, UNSPECIFIED Status: Acute Qualifiers: (3) Hypertensive urgency Code(s): I16.0 - HYPERTENSIVE URGENCY Status: Acute (4) Lower extremity edema Code(s): R60.0 - LOCALIZED EDEMA Status: Acute (5) HTN (hypertension) Code(s): I10 - ESSENTIAL (PRIMARY) HYPERTENSION Status: Chronic Qualifiers: - Plan * started on levaquin * cont current plan of care * cxr in AM * probable DC in 24-48hrs if patient is feeling well and labs look appropriate * case and plan d/w patient and family at length, they understand and agree with this plan
[2017-09-15] MEDS: lamoTRIgine 25 MG TAB PO SCH ×2 (11:36→21:05)
[2017-09-15] MEDS: OLANZapine 5 MG TAB PO SCH (21:04)
[2017-09-15] MEDS: Atorvastatin Calcium 40 MG TAB PO SCH (21:05)
[2017-09-15] MEDS: DULoxetine 30 MG CAP PO SCH (21:05)
[2017-09-16] MEDS: DULoxetine 60 MG CAP PO SCH (09:37)
[2017-09-16] MEDS: hydrALAZINE 25 MG TAB PO SCH ×3 (09:38→21:11)
[2017-09-16] MEDS: Aspirin 81 mg Enteric Coated Tablet PO SCH (09:38)
[2017-09-16] MEDS: Famotidine 20 MG TAB PO SCH ×2 (09:38→21:10)
[2017-09-16] MEDS: Gabapentin 100 MG CAP PO SCH ×3 (09:38→21:11)
[2017-09-16] MEDS: Lisinopril/Hydrochlorothiazide 20 mg/12.5 mg Tablet PO SCH ×2 (09:39→21:10)
[2017-09-16] MEDS: lamoTRIgine 100 MG TAB PO SCH ×2 (09:39→21:10)
[2017-09-16] MEDS: HYDROcodone/Acetaminophen 5/325 mg Tablet PO PRN (09:55)
[2017-09-16] MEDS: lamoTRIgine 25 MG TAB PO SCH ×2 (09:55→21:10)
--- NOTE | 2017-09-16 09:59 | HP ---
DATE OF ADMISSION: 09/14/2017 CHIEF COMPLAINT: Dyspnea. HISTORY OF PRESENT ILLNESS: The patient is 46-year-old female with a past medical history of hyperte nsion, CHF, bipolar disorder, now came here because of dyspnea, started 2 days back, persistent. The patient tried her mother's breathing treatment, but it did not help her. Complains of cough . Denies any fever. Denies any chills. Denies any chest pain. Denies any palpitation. Denies any d izziness. Denies any cough. Denies fluid collection. Denies any headache. Denies nausea. Denies vomiting. Denies diarrhea. Denies any palpitations. PAST MEDICAL HISTORY: As per HPI. PAST SURGICAL HISTORY: Reviewed. SOCIAL HISTORY: Positive for smoking. Denies alcohol. Denies any drugs. MEDICATIONS: Reviewed. FAMILY HISTORY: Denies any heart problems. REVIEW OF SYSTEMS: Constitutional: Denies any fever. Denies any chills. Eyes: No vision problems. Ears: Denies any hearing loss. Neck: Denies any neck pain. Cardiovascular system: Denies any chest pain. Denies any palpitations. Respiratory: Positive for dyspnea. Positive for cough. Positive for sputum prod uction. Gastrointestinal: Denies nausea. Denies any vomiting. Genitourinary: Denies dysuria. In tegumentary: Denies any rash. PHYSICAL EXAMINATION: At the time which performed, VITAL SIGNS: Afebrile, respiratory rate 18, blood pressure 120/70. GENERAL APPEARANCE: The patient appears comfortable. Pupils equal, round, and reactive. HEENT: Anterior nares patent. Nose normal. CARDIAC: S1, S2 present. Regular rate and rhythm. No murmurs, no rubs, no gallops. RESPIRATORY: Occasional wheezing present, diminished breath sounds. Positive for rhonchi . ABDOMEN: Soft and nontender. No guarding. No organomegaly. No masses felt. INTEGUMENTARY: No rashes seen. PSYCHIATRY: Mood appropriate at this time. LABORATORY: Labs at the time of H and P performed, white count 11.1, hemoglobin 13.7, platelet count 442,000. BMP showed sodium 140, potassium 3.6, chloride 103, CO2 26, BUN of 7, creatinine 0.78, CK- MB 1.8. Troponin less than 0.010. CT chest in preliminary report, no evidence of PE, waiting for of ficial report. ASSESSMENT AND PLAN: The patient is 46-year-old female, 1. Chronic obstructive pulmonary disease exacerbation. The patient plan to wait for official CT rep ort. Plan to start the patient on breathing treatments and IV steroids. Plan to monitor patient clos beverley. 2. Acute bronchitis. Plan to start patient on IV Zithromax and Rocephin also. We will monitor the patient. 3. History of hypertension blood pressure. Continue BP meds. 4. History of congestive heart failure. Strict I's and O's. Continue home meds. stable at t his time, but no home medications. Case was discussed in detail with the patient and patient's sisnandini pisano.
[2017-09-16] MEDS ORDERED: Benzonatate 100 MG CAP PO PRN (10:28)
--- NOTE | 2017-09-16 10:30 | PDOC.PN ---
- Subjective Encounter Start Date: 09/16/17 Encounter Start Time: 10:28 Patient seen and examined, states she is still coughing but does feel a bit better than yesterday, no other issues or complaints, all questions answered, no family at bedside. - Objective Vital Signs & Weight: Vital Signs (12 hours) Temp Pulse Resp BP BP Pulse Ox 09/16/17 09:39 78 09/16/17 09:38 78 09/16/17 09:30 98.8 F 78 20 135/77 96 09/16/17 04:00 98.5 F 77 14 128/85 97 Weight Admit Weight 218 lb Weight 219 lb 4.8 oz I&O: 09/15/17 09/16/17 09/17/17 06:59 06:59 06:59 Output Total 700 250 Balance -700 -250 Result Diagrams: 09/14/17 11:22 09/14/17 11:22 Phys Exam - Physical Examination Constitutional: NAD HEENT: PERRLA, moist MMs, sclera anicteric Neck: no nodes, no JVD, supple mild wheezing present, better than yesterday no respiratory distress, +coughing during interview Cardiovascular: RRR, no significant murmur, no rub Gastrointestinal: soft, non-tender, no distention Musculoskeletal: pulses present, edema present (trace) Neurological: non-focal, normal sensation Psychiatric: normal affect, A&O x 3 Dx/Plan (1) COPD (chronic obstructive pulmonary disease) with acute bronchitis Code(s): J44.0 - CHRONIC OBSTRUCTIVE PULMON DISEASE W ACUTE LOWER RESP INFCT; J20.9 - ACUTE BRONCHITIS, UNSPECIFIED Status: Acute (2) Bipolar disorder Code(s): F31.9 - BIPOLAR DISORDER, UNSPECIFIED Status: Acute Qualifiers: (3) Hypertensive urgency Code(s): I16.0 - HYPERTENSIVE URGENCY Status: Acute (4) Lower extremity edema Code(s): R60.0 - LOCALIZED EDEMA Status: Acute (5) HTN (hypertension) Code(s): I10 - ESSENTIAL (PRIMARY) HYPERTENSION Status: Chronic Qualifiers: - Plan * cont abx for now * repeat cxr in AM * patient feeling a bit better but not fully back to normal * cultures pending * tessalon pearls PRN for cough * case and plan d/w patient at length, she understands and agrees with this plan
[2017-09-16] MEDS: DULoxetine 30 MG CAP PO SCH (21:10)
[2017-09-16] MEDS: Atorvastatin Calcium 40 MG TAB PO SCH (21:10)
[2017-09-16] MEDS: Zolpidem Tartrate 5 MG TAB PO PRN (21:11)
[2017-09-16] MEDS: OLANZapine 5 MG TAB PO SCH (21:11)
--- NOTE | 2017-09-17 09:03 | RAD ---
UPRIGHT PORTABLE CHEST 1 VIEW: HISTORY: A 46-year-old female with a history of cough. COMPARISON: 09/14/17. FINDINGS: Interval development of an alveolar parenchymal process in the right lower lobe concerning for develo ping pneumonia. Borderline-size heart. The left lung is stable. IMPRESSION: Evidence for developing right lower lobe pneumonia. Continue short-term followup for complete cleari ng. POS: OFF
[2017-09-17] MEDS: Famotidine 20 MG TAB PO SCH ×2 (09:12→21:17)
[2017-09-17] MEDS: Lisinopril/Hydrochlorothiazide 20 mg/12.5 mg Tablet PO SCH ×2 (09:13→21:16)
[2017-09-17] MEDS: Gabapentin 100 MG CAP PO SCH ×3 (09:13→21:17)
[2017-09-17] MEDS: Aspirin 81 mg Enteric Coated Tablet PO SCH (09:13)
[2017-09-17] MEDS: lamoTRIgine 25 MG TAB PO SCH ×2 (09:14→21:18)
[2017-09-17] MEDS: lamoTRIgine 100 MG TAB PO SCH ×2 (09:14→21:18)
[2017-09-17] MEDS: DULoxetine 60 MG CAP PO SCH (09:48)
[2017-09-17] MEDS: hydrALAZINE 25 MG TAB PO SCH ×3 (09:48→21:17)
[2017-09-17] MEDS ORDERED: Albuterol Sulfate 2.5 mg/3 ml Neb NEB PRN (12:06)
[2017-09-17] MEDS ORDERED: Benzonatate 100 MG CAP PO PRN (12:08)
[2017-09-17 13:42] LABS: #Lymphocytes 4.9 thou/uL (1.20-3.40); #Monocytes 0.9 thou/uL (0.11-0.59); #Neutrophils 6.4 thou/uL (1.40-6.50); %Eosinophils 0.2 % (0.0-10.0); %Lymphocytes 39.9 % (21.0-51.0); %Monocytes 7.2 % (0.0-10.0); %Neutrophils 52.6 % (42.0-75.0); Hemoglobin 13.3 g/dL (12.0-16.0); Mean Corpuscular HGB CONC 33.1 g/dL (32.0-36.0); Mean Corpuscular Volume 84.5 fl (81.0-99.0); Mean Platelet Volume 6.6 fL (7.4-10.4); Platelet Count 442 thou/uL (130-400); RBC Distribution Width 14.2 % (11.5-14.5); Red Blood Cell (RBC) Count 4.75 mill/uL (4.20-5.40); White Blood Cell (WBC) Count 12.1 thou/uL (4.8-10.8)
[2017-09-17 14:06] LABS: Anion Gap 12 mmol/L (10-20); BUN (Urea Nitrogen) 13 mg/dL (7.0-18.7); Calc. Creatinine Clearance 132 mL/min (70-130); Calcium 9.5 mg/dL (7.8-10.44); Carbon Dioxide 26 mmol/L (22-29); Chloride 101 mmol/L (98-107); Estimated GFR-MDRD 90; Glucose 132 mg/dL (70-105); Potassium 3.2 mmol/L (3.5-5.1); Sodium 136 mmol/L (136-145)
[2017-09-17] MEDS: HYDROcodone/Acetaminophen 5/325 mg Tablet PO PRN (15:53)
--- NOTE | 2017-09-17 16:16 | PDOC.PN ---
- Subjective Encounter Start Date: 09/17/17 Encounter Start Time: 12:00 -: old records requested/rev Pt seen and examined, chart reviewed in its entirety, this si my first visit with this patient admitted three days ago with possible COPD (undiagnosed) with acute exacerbation and PNA, community acquired. Pt on levoflox, astrid well. continues to have nagging, continuous cough, nonproductive, abd pain from constant coughing and SOB with HARO No other complaints, denies F/C, no N/V/d/C, no CP 10 point ROS performed and neg for all system except as per HPI - Objective MAR Reviewed: Yes Vital Signs & Weight: Vital Signs (12 hours) Temp Pulse Resp BP BP BP Pulse Ox 09/17/17 14:33 94 131/71 09/17/17 11:50 99.3 F 94 22 H 131/71 09/17/17 09:48 88 136/73 09/17/17 09:13 88 136/73 09/17/17 08:20 96 09/17/17 07:59 99.0 F 88 22 H 136/73 96 09/17/17 07:57 98.3 F 82 18 09/17/17 05:15 98.3 F 82 18 141/85 H 100 Weight Admit Weight 218 lb Weight 219 lb 4.8 oz I&O: 09/16/17 09/17/17 09/18/17 06:59 06:59 06:59 Intake Total 1120 Output Total 250 2200 Balance -250 -1080 Result Diagrams: 09/17/17 13:24 09/17/17 13:24 Radiology Reviewed by me: Yes EKG Reviewed by me: Yes Phys Exam - Physical Examination Constitutional: NAD HEENT: PERRLA, moist MMs, sclera anicteric, oral pharynx no lesions Neck: no nodes, no JVD, supple, full ROM exp wheezing, prolonged expiration, no rhonchi, persistent cough Cardiovascular: RRR, no significant murmur, no rub Gastrointestinal: soft, non-tender, no distention, positive bowel sounds Musculoskeletal: no edema, pulses present Neurological: non-focal, normal sensation, moves all 4 limbs Lymphatic: no nodes Psychiatric: normal affect, A&O x 3 Skin: no rash, normal turgor, cap refill <2 seconds Dx/Plan (1) CAP (community acquired pneumonia) Code(s): J18.9 - PNEUMONIA, UNSPECIFIED ORGANISM Status: Acute Qualifiers: Laterality: right Lung location: lower lobe of lung Qualified Code(s): J18.1 - Lobar pneumonia, unspecified organism Comment: suspected on admit, confirmed on repeat CXR today. on levoflox, WBC normal, afebrile. anticipate D/C when COPD stable, possibly tomorrow (2) Diastolic dysfunction without heart failure Code(s): I51.9 - HEART DISEASE, UNSPECIFIED Status: Chronic Comment: grade 1 /3 diastolic dysfunction. (3) COPD (chronic obstructive pulmonary disease) with acute bronchitis Code(s): J44.0 - CHRONIC OBSTRUCTIVE PULMON DISEASE W ACUTE LOWER RESP INFCT; J20.9 - ACUTE BRONCHITIS, UNSPECIFIED Status: Acute Comment: nebs scheduled and PRN, hold steroids for now (4) Bipolar disorder Code(s): F31.9 - BIPOLAR DISORDER, UNSPECIFIED Status: Chronic Qualifiers: Active/Remission status: remission status unspecified (5) HTN (hypertension) Code(s): I10 - ESSENTIAL (PRIMARY) HYPERTENSION Status: Chronic Qualifiers: Hypertension type: essential hypertension Qualified Code(s): I10 - Essential (primary) hypertension - Plan cont current plan of care, continue antibiotics, respiratory therapy, out of bed /ambulate * .
[2017-09-17] MEDS ORDERED: Ibuprofen 600 MG TAB PO PRN (18:10)
[2017-09-17] MEDS: DULoxetine 30 MG CAP PO SCH (21:16)
[2017-09-17] MEDS: OLANZapine 5 MG TAB PO SCH (21:17)
[2017-09-17] MEDS: Zolpidem Tartrate 5 MG TAB PO PRN (21:17)
[2017-09-17] MEDS: guaiFENesin ER 600 MG TAB PO SCH (21:17)
[2017-09-17] MEDS: Atorvastatin Calcium 40 MG TAB PO SCH (21:18)
[2017-09-18] MEDS: HYDROcodone/Acetaminophen 5/325 mg Tablet PO PRN ×2 (04:33→09:58)
[2017-09-18 06:20] LABS: Anion Gap 12 mmol/L (10-20); BUN (Urea Nitrogen) 12 mg/dL (7.0-18.7); Calc. Creatinine Clearance 133 mL/min (70-130); Calcium 9.6 mg/dL (7.8-10.44); Carbon Dioxide 28 mmol/L (22-29); Chloride 100 mmol/L (98-107); Estimated GFR-MDRD Greater than 90; Glucose 115 mg/dL (70-105); Potassium 3.5 mmol/L (3.5-5.1); Sodium 136 mmol/L (136-145)
[2017-09-18 06:27] LABS: Eosinophils 2 % (0-10); Hemoglobin 13.4 g/dL (12.0-16.0); Lymphocytes 47 % (21-51); MDiff Complete? YES; Mean Corpuscular HGB CONC 33.2 g/dL (32.0-36.0); Mean Corpuscular Hemoglobin 27.9 pg (27.0-31.0); Mean Corpuscular Volume 84.3 fl (81.0-99.0); Mean Platelet Volume 6.8 fL (7.4-10.4); Monocytes 9 % (0-10); Neutrophil 42 % (42-75); PLT Morphology Comment Appears Increased; Platelet Count 456 thou/uL (130-400); Red Blood Cell (RBC) Count 4.78 mill/uL (4.20-5.40); White Blood Cell (WBC) Count 13.3 thou/uL (4.8-10.8)
[2017-09-18] MEDS: Famotidine 20 MG TAB PO SCH (08:16)
[2017-09-18] MEDS: Aspirin 81 mg Enteric Coated Tablet PO SCH (08:16)
[2017-09-18] MEDS: Gabapentin 100 MG CAP PO SCH (08:17)
[2017-09-18] MEDS: guaiFENesin ER 600 MG TAB PO SCH (08:17)
[2017-09-18] MEDS: hydrALAZINE 25 MG TAB PO SCH (08:17)
[2017-09-18] MEDS: Lisinopril/Hydrochlorothiazide 20 mg/12.5 mg Tablet PO SCH (08:18)
[2017-09-18] MEDS: lamoTRIgine 100 MG TAB PO SCH (08:18)
[2017-09-18] MEDS: DULoxetine 60 MG CAP PO SCH (08:18)
[2017-09-18] MEDS: lamoTRIgine 25 MG TAB PO SCH (08:19)
[2017-09-18] MEDS ORDERED: predniSONE 20 MG TAB PO SCH (10:30)
[2017-09-18 13:03] VITALS: BMI 31.4
[2017-09-18 14:20] VITALS: BP 136/86; TEMP 97.9
== END 2017-09-18 16:25 | disposition home or self-care (01) | DRG 190 ==
LOC: ERS 10:56 → 2NO 15:08 → 3SE 09-17 01:30
PROVIDERS: ADMIT Internal Medicine; ATTEND Internal Medicine
DX: J44.0 Chronic obstructive pulmonary disease with (acute) lower respiratory infection (principal); J18.9 Pneumonia, unspecified organism; I50.32 Chronic diastolic (congestive) heart failure; J44.1 Chronic obstructive pulmonary disease with (acute) exacerbation; J20.9 Acute bronchitis, unspecified; F31.9 Bipolar disorder, unspecified; F17.210 Nicotine dependence, cigarettes, uncomplicated; I11.0 Hypertensive heart disease with heart failure; I16.0 Hypertensive urgency
CPT/HCPCS: 36415; 71045; 71275; 80048; 80053; 82553; 83735; 83880; 84484; 85025; 93005; 94640; 94760; 96374; 96375; 99406; J1940; J1956; J2930; J7506; J7611; J7620

== ENCOUNTER 2018-02-08 11:56 | Emergency (ER) | payer MEDICAID, SELFPAY ==
[2018-02-08 12:45] LABS: Bilirubin Negative (Negative); Blood, Urine Moderate (Negative); Clarity CLOUDY (Clear); Glucose, Urine (Dipstick) Negative (Negative); Leukocyte Small (Negative); Nitrite Negative (Negative); Protein, Urine (Dipstick) 30 mg/dL (Neg-Trace); Specific Gravity, Urine 1.025 (1.002-1.036)
[2018-02-08 12:49] LABS: Bacteria/HPF 3+ HPF (None Seen); Pathc Cast-AUWi Flag 0.29 (0-2.49); Squamous Epithelial 0-3 HPF (0-3)
[2018-02-08 12:59] LABS: Hyaline Casts/LPF 0-3 HYALINE CAST LPF (0-3 Hyaline)
== END 2018-02-08 14:28 | disposition home or self-care (01) ==
LOC: ERS 11:56
DX: N39.0 Urinary tract infection, site not specified (principal); I11.0 Hypertensive heart disease with heart failure; I50.9 Heart failure, unspecified; F31.9 Bipolar disorder, unspecified; Z87.891 Personal history of nicotine dependence; Z79.899 Other long term (current) drug therapy; Z79.82 Long term (current) use of aspirin
CPT/HCPCS: 81003; 81015; 99283

== ENCOUNTER 2018-11-17 10:56 | Emergency (ER) | payer SELFPAY ==
[~2018-11-17 10:56] MED LIST: ISOVUE-370 76%-LOCM 1 ML ONE
--- NOTE | 2018-11-17 12:22 | CT ---
CT BRAIN NONCONTRAST: DATE: 11/17/2018 HISTORY: 48-year-old female with headache FINDINGS: There is no evidence of acute intra-axial or extra-axial hemorrhage. There is no midline shift or any other mass effect. There is no extra-axial fluid collection. There is no evidence of obstructive hydrocephalus. Calvarium is intact. IMPRESSION: No acute intracranial findings.
--- NOTE | 2018-11-17 12:27 | RAD ---
RADIOGRAPH CHEST 1 VIEW: DATE: 11/17/2018 HISTORY: 48-year-old female with hypertension FINDINGS: There are no airspace densities, pulmonary edema, pneumothorax, or cardiomegaly. The lateral costophr enic angles are sharp. IMPRESSION: 1. No acute cardiopulmonary findings. 2. Scoliosis of thoracic spine treated with Saini mohit.
[2018-11-17 12:34] LABS: #Basophils 0.1 thou/uL (0.0-0.2); #Lymphocytes 2.8 thou/uL (1.20-3.40); #Monocytes 0.6 thou/uL (0.11-0.59); #Neutrophils 4.6 thou/uL (1.40-6.50); %Basophils 0.8 % (0.0-1.0); %Eosinophils 0.3 % (0.0-10.0); %Lymphocytes 34.4 % (21.0-51.0); %Monocytes 7.8 % (0.0-10.0); %Neutrophils 56.7 % (42.0-75.0); Hemoglobin 13.7 g/dL (12.0-16.0); Mean Corpuscular HGB CONC 32.2 g/dL (32.0-36.0); Mean Corpuscular Volume 87.1 fL (78.0-98.0); Mean Platelet Volume 6.7 fL (7.4-10.4); Platelet Count 431 thou/uL (130-400); RBC Distribution Width 13.9 % (11.5-14.5); White Blood Cell (WBC) Count 8.1 thou/uL (4.8-10.8)
[2018-11-17 12:56] LABS: ALT (SGPT) 11 U/L (8-55); AST (SGOT) 13 U/L (5-34); Albumin 4.3 g/dL (3.5-5.0); Alkaline Phosphatase 68 U/L (40-150); Anion Gap 12 mmol/L (10-20); BUN (Urea Nitrogen) 11 mg/dL (7.0-18.7); Bilirubin, Total 0.2 mg/dL (0.2-1.2); Calc. Creatinine Clearance 0 mL/min (70-130); Calcium 10.2 mg/dL (7.8-10.44); Carbon Dioxide 29 mmol/L (22-29); Chloride 103 mmol/L (98-107); Estimated GFR-MDRD 85; Glucose 96 mg/dL (70-105); Potassium 4.1 mmol/L (3.5-5.1); Protein, Total 7.3 g/dL (6.0-8.3); Sodium 140 mmol/L (136-145)
[2018-11-17] MEDS ORDERED: Acetaminophen 325 MG TAB ONE (14:49)
[2018-11-17 15:03] LABS: Bilirubin Negative (Negative); Blood, Urine Negative (Negative); Glucose, Urine (Dipstick) Negative (Negative); Leukocyte Negative (Negative); Nitrite Negative (Negative); Protein, Urine (Dipstick) Trace mg/dL (Neg-Trace)
[2018-11-17 15:05] LABS: Clarity Clear (Clear)
[2018-11-17 15:14] LABS: Amphetamine Not Detected (NotDetected); Barbiturates Screen Not Detected (NotDetected); Benzodiazepine Screen Not Detected (NotDetected); Cocaine Metabolite Screen Not Detected (NotDetected); Medtox Control Line Valid? VALID (VALID); Medtox Reader # READER 4; Methadone Not Detected (NotDetected); Methamphetamine Not Detected (NotDetected); Opiate Screen Detected (NotDetected); Oxycodone Screen Not Detected (NotDetected); Phencyclidine (PCP) Not Detected (NotDetected); THC/Cannabinoid Screen Detected (NotDetected); Tricyclic Screen Not Detected (NotDetected)
--- NOTE | 2018-11-17 16:02 | CT ---
ABDOMEN AND PELVIC CT SCAN WITH IV CONTRAST: 11/17/18 HISTORY: Fatigue, headache, hypertension, abdominal pain with dark loose stools, productive cough. FINDINGS: Scoliotic changes are noted of the lumbothoracic vertebral column stabilized with a right sided Harri ngton mohit. The lung bases appear clear. 0.6 cm diameter circumscribed low attenuation focus in the ri ght lobe of the liver, statistically a small cyst. Multiple low attenuation gallstones noted in the g allbladder without CT evidence for acute cholecystitis. Pancreas, spleen and adrenal glands are unrem arkable. No renal calculus or acute obstruction. No CT evidence for acute appendicitis. Urinary bl adder is unremarkable. No abnormal fluid collection within the abdomen or pelvis. There is some heterogeneous thickened trabeculae and sclerosis in the femoral head and acetabula on t he right side possibly changes of Paget's disease. IMPRESSION: No significant acute process in the abdomen or pelvis. Multiple gallstones without acute cholecystiti s. Probable small right lobe of liver cyst. Normal appearing appendix. No renal calculus or acute obstruction. Other findings as above. POS: TPC
== END 2018-11-17 16:51 | disposition home or self-care (01) ==
LOC: ERS 10:56
DX: I11.0 Hypertensive heart disease with heart failure (principal); I50.9 Heart failure, unspecified; F17.210 Nicotine dependence, cigarettes, uncomplicated; Z79.899 Other long term (current) drug therapy
CPT/HCPCS: 36415; 70450; 71045; 74177; 80053; 80306; 81003; 83880; 84484; 85025; 93005; Q9966

== ENCOUNTER 2018-12-01 12:38 | Emergency (ER) | payer SELFPAY ==
[2018-12-01 14:15] LABS: #Basophils 0.1 thou/uL (0.0-0.2); #Lymphocytes 3.9 thou/uL (1.20-3.40); #Neutrophils 4.1 thou/uL (1.40-6.50); %Eosinophils 0.2 % (0.0-10.0); %Lymphocytes 42.6 % (21.0-51.0); %Neutrophils 45.1 % (42.0-75.0); Hemoglobin 14.6 g/dL (12.0-16.0); Mean Corpuscular HGB CONC 31.6 g/dL (32.0-36.0); Mean Corpuscular Hemoglobin 27.3 pg (27.0-31.0); Mean Corpuscular Volume 86.3 fL (78.0-98.0); Mean Platelet Volume 7.1 fL (7.4-10.4); Platelet Count 458 thou/uL (130-400); RBC Distribution Width 13.4 % (11.5-14.5); Red Blood Cell (RBC) Count 5.37 mill/uL (4.20-5.40)
--- NOTE | 2018-12-01 14:46 | RAD ---
TWO VIEW CHEST: 12/01/18 COMPARISON: 11/17/18. INDICATION: Fatigue. History of CHF. FINDINGS: Spinal mohit remains in place, partially visualized. There is hyperinflation of the lungs. No evidence of consolidation or effusion. Cardiomediastinal silhouette is stable. IMPRESSION: Hyperinflated lungs indicative of COPD. No superimposed focal consolidation. POS: C
[2018-12-01 15:00] LABS: ALT (SGPT) 13 U/L (8-55); AST (SGOT) 16 U/L (5-34); Albumin 4.4 g/dL (3.5-5.0); Alkaline Phosphatase 83 U/L (40-150); Anion Gap 14 mmol/L (10-20); BUN (Urea Nitrogen) 11 mg/dL (7.0-18.7); Bilirubin, Total 0.3 mg/dL (0.2-1.2); Calc. Creatinine Clearance 0 mL/min (70-130); Calcium 10.1 mg/dL (7.8-10.44); Carbon Dioxide 28 mmol/L (22-29); Chloride 100 mmol/L (98-107); Estimated GFR-MDRD 58; Globulin 3.2 g/dL (2.4-3.5); Glucose 83 mg/dL (70-105); Potassium 3.4 mmol/L (3.5-5.1); Protein, Total 7.6 g/dL (6.0-8.3); Sodium 139 mmol/L (136-145)
--- NOTE | 2018-12-05 16:21 | EKG ---
Test Reason : Blood Pressure : / mmHG Vent. Rate : 086 BPM Atrial Rate : 086 BPM P-R Int : 172 ms QRS Dur : 064 ms QT Int : 358 ms P-R-T Axes : 062 039 051 degrees QTc Int : 428 ms Normal sinus rhythm Possible Left atrial enlargement Septal infarct , age undetermined Abnormal ECG Confirmed by ANGELICA OBREGON, SHANKAR ([id number]), fan mail editor KATIANA LENNON ([id number]) on 12/05/2018 4:21:07 PM Referred By: Confirmed By:SHANKAR DOMINGUEZ MD
== END 2018-12-01 16:03 | disposition home or self-care (01) ==
LOC: ERS 12:38
DX: R53.1 Weakness (principal); I11.0 Hypertensive heart disease with heart failure; I50.9 Heart failure, unspecified; F17.210 Nicotine dependence, cigarettes, uncomplicated
CPT/HCPCS: 36415; 71046; 80053; 82550; 83880; 84443; 84484; 85025; 85379; 93005

== ENCOUNTER 2021-02-09 08:55 | Outpatient (CLI) | payer MEDICARE, MEDICAID ==
[2021-02-09] MEDS ORDERED: Iopamidol 370 76% 100 ML VIAL ONE (10:52)
== END 2021-02-09 08:56 | disposition home or self-care (01) ==
LOC: CT 08:55
PROVIDERS: ATTEND Internal Medicine Gastroenterology
DX: R63.4 Abnormal weight loss (principal)
CPT/HCPCS: 74177; Q9967

== ENCOUNTER 2022-10-31 18:41 | Emergency (ER) | payer MEDICARE, MEDICAID ==
[2022-10-31 19:58] LABS: #Monocytes 0.6 thou/uL (0.11-0.59); #Neutrophils 2.8 thou/uL (1.40-6.50); %Basophils 0.3 % (0.0-1.0); %Lymphocytes 50.4 % (21.0-51.0); %Monocytes 8.2 % (0.0-10.0); %Neutrophils 40.8 % (42.0-75.0); Mean Corpuscular HGB CONC 32.5 g/dL (32.0-36.0); Mean Corpuscular Hemoglobin 27.6 pg (27.0-31.0); Mean Corpuscular Volume 84.8 fl (78.0-98.0); Mean Platelet Volume 9.2 fL (7.4-10.4); Platelet Count 460 10x3/uL (130-400); RBC Distribution Width 14.9 % (11.5-14.5); Red Blood Cell (RBC) Count 4.35 mill/uL (4.20-5.40); White Blood Cell (WBC) Count 6.7 10x3/uL (4.8-10.8)
[2022-10-31 20:22] LABS: ALT (SGPT) 21 U/L (8-55); AST (SGOT) 18 U/L (5-34); Albumin 4.3 g/dL (3.5-5.0); Alkaline Phosphatase 71 U/L (40-110); Anion Gap 13 mmol/L (10-20); BUN (Urea Nitrogen) 19 mg/dL (9.8-20.1); Bilirubin, Total Less than 0.2 mg/dL (0.2-1.2); Calc. Creatinine Clearance 0 mL/min (70-130); Calcium 10.3 mg/dL (7.8-10.44); Carbon Dioxide 29 mmol/L (22-29); Chloride 101 mmol/L (98-107); Estimated GFR 74; Glucose 85 mg/dL (70-105); Potassium 3.7 mmol/L (3.5-5.1); Protein, Total 7.3 g/dL (6.0-8.3); Sodium 139 mmol/L (136-145)
[2022-10-31] MEDS ORDERED: Ibuprofen 200 MG TAB ONE (23:48)
[2022-11-01 01:18] LABS: Acetaminophen Less than 10 mcg/mL (10.0-30.0); Alcohol Less than 10.0 mg/dL (Less than 10); Lipase 54 U/L (8-78); Salicylate Less than 8.0 mg/dL (15.0-30.0)
[2022-11-01 02:19] LABS: Bacteria/HPF None Seen HPF (None Seen); Bilirubin Negative (Negative); Blood, Urine Negative (Negative); CAUTI Indications for Culture Dysuria,urgency,freq; Clarity Clear (Clear); Glucose, Urine (Dipstick) Normal (Negative); Ketone, Urine Negative (Negative); Leukocyte Negative Leu/uL (Negative); Nitrite Negative (Negative); Protein, Urine (Dipstick) Negative (Neg-Trace); RBC/HPF 0-3 HPF (0-3); Specific Gravity, Urine 1.029 (1.002-1.036); Squamous Epithelial 0-3 HPF (0-3); Urobilinogen Normal mg/dL (Less than 2); WBC/HPF 0-3 HPF (0-3); pH, Urine 5.5 (5.0-9.0)
[2022-11-01 02:21] LABS: Urine Culture Reflex No No
[2022-11-01 02:26] LABS: Amphetamine Not Detected (NotDetected); Barbiturates Screen Not Detected (NotDetected); Benzodiazepine Screen Not Detected (NotDetected); Cocaine Metabolite Screen Not Detected (NotDetected); Methadone Not Detected (NotDetected); Methamphetamine Not Detected (NotDetected); Opiate Screen Not Detected (NotDetected); Oxycodone Screen Not Detected (NotDetected); Phencyclidine (PCP) Not Detected (NotDetected); THC/Cannabinoid Screen Detected (NotDetected); Tricyclic Screen Not Detected (NotDetected)
[2022-11-01] MEDS ORDERED: Iopamidol-370 76% 500 ML MDV (1 ML CHARGE) ONE (15:21)
== END 2022-11-01 03:41 | disposition home or self-care (01) ==
LOC: ERS 18:41
DX: R53.1 Weakness (principal); F12.90 Cannabis use, unspecified, uncomplicated; I11.0 Hypertensive heart disease with heart failure; I50.9 Heart failure, unspecified; F17.210 Nicotine dependence, cigarettes, uncomplicated
CPT/HCPCS: 36415; 71045; 71275; 80053; 80306; 80307; 81001; 82550; 83690; 84443; 84484; 85025; 85379; 93005; Q9967